=== PATIENT | female | born 1965 | race Caucasian/White ===

== ENCOUNTER 2018-11-15 14:21 | Inpatient (IN) | payer OTHER ==
[~2018-11-15] VITALS: Ht 157.5 cm; Wt 97.5 kg
[2018-11-27] MEDS ORDERED: DEMADEX20 MG PO (13:34)
[2018-11-27] MEDS ORDERED: K-TAB10 MEQ PO (13:34)
[2018-11-27] MEDS ORDERED: METOPROLOL TART25 MG PO (13:35)
[2018-11-27] MEDS ORDERED: OMEPRAZOLE20 M1 PO (13:35)
[2018-11-27] MEDS ORDERED: LEVOXYL100 MCG PO (13:35)
[2018-11-27] MEDS ORDERED: GLUCOPHAGE500 MG PO (13:35)
[2018-11-27] MEDS ORDERED: PROBENECID500 MG PO (13:35)
[2018-11-27] MEDS ORDERED: LISINOPRIL20 MG PO (13:36)
[2018-11-28] VITALS (9 sets, daily range): BP systolic 98–132; BP diastolic 58–72; BMI 40.7; BMI 39.4
[2018-11-28 08:12] LABS: BASOPHILS 0.1 % (0-2); EOSINOPHILS 1.2 % (0-7); HEMATOCRIT 36.9 % (36.0-48.0); HEMOGLOBIN 11.7 g/dL (12-16); IMMATURE GRANULOCYTES 0.1 % (0-5); MCH 27.8 pg (26.0-34.0); MCHC 31.7 g/dL (31.0-37.0); MCV 87.6 fL (80.0-100.0); MEAN PLATELET VOLUME 10.9 fL (7.4-10.4); MONOCYTES 7.9 % (2-11); NEUTROPHILS 76.7 % (40-80); PLATELET COUNT 171 10x3/uL (130-400); RBC 4.21 10x6/uL (4.00-5.40); RDW 14.5 % (11.5-14.5); WBC 6.9 10x3/uL (4.8-10.8)
[2018-11-28 08:23] LABS: CALC OSMOLALITY 280 mosm/kg (275-300); CALCIUM 9.2 mg/dL (8.5-10.1); CARBON DIOXIDE 29.3 mmol/L (21.0-32.0); CHLORIDE - SERUM 104 mmol/L (98-107); CREATININE - SERUM 0.5 mg/dL (0.6-1.3); GLUCOSE 137 mg/dL (74-106); POTASSIUM - SERUM 4.3 mmol/L (3.5-5.1); SODIUM 141 mmol/L (136-145); UREA NITROGEN 8 mg/dL (7-18); eGFR NON AFRICAN AMERICAN > 90 mL/min (90-120)
[2018-11-28 08:52] LABS: APTT 33.7 SECONDS (22.8-39.4); INR 1.09 (0.85-1.17); PROTIME 13.6 SECONDS (11.6-15.0)
--- NOTE | 2018-11-28 17:00 | NUR ---
RECEIVED TO ROOM 2206 VIA BED FROM PACU. ROUSES TO VERBAL STIMULATION. A/O X3. FAMILY AT BEDSIDE. RANDY BANERJEE WTIH CLEAR YELLOW URINE. DRESSING TO ABDOMEN DRY AND INTACT. RAUDEL PATENT WITH SEROUS SANGUINESS DRAINAGE. DENIES NEEDS.
--- NOTE | 2018-11-28 18:10 | NUR ---
FSBS 219. GIVEN 8 UNITS REGUALAR SUBQ FOR SAME PER SS. 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 DENIES NEEDS.
--- NOTE | 2018-11-28 20:00 | NUR ---
PT LYING IN BED RESTING W/ EYES CLOSED. AWAKENS TO VERBAL STIMULI. ALERT AND ORIENTED. NO SIGNS OF DISTRESS. VSS. PT STATES PAIN WHEN MOVING OR COUGHING. PILLOW PROVIDED TO SPLINT ABD WHILE COUGHING. IV LEFT HAND INFUSING NS @ 125 W/ DILAUDID CLERK TO JUSTICE. O2 2L/NC. MIDLINE INCISION, TWO LAP SITES, AND RAUDEL DRAIN SITE DRESSINGS CDI. EMPTIED 70ML FROM DRAIN. PADILLA NOTED DRAINING CLEAR YELLOW URINE. PROVIDED PT W/ ICE CHIPS. NO OTHER NEEDS AT THIS TIME. CL IN REACH, WILL CONTINUE TO MONITOR
[2018-11-29] VITALS: BP 93/51
--- NOTE | 2018-11-29 | NUR ---
BS 176, GAVE 4 UNITS PER SS. DENIES NEEDS. CL IN REACH
[2018-11-29 04:00] VITALS: BP 171/61
[2018-11-29 04:59] LABS: BASOPHILS 0 % (0-2); EOSINOPHILS 0 % (0-7); HEMATOCRIT 33.8 % (36.0-48.0); HEMOGLOBIN 10.4 g/dL (12-16); IMMATURE GRANULOCYTES 0.1 % (0-5); MCH 27.4 pg (26.0-34.0); MCHC 30.8 g/dL (31.0-37.0); MCV 88.9 fL (80.0-100.0); MEAN PLATELET VOLUME 11.3 fL (7.4-10.4); MONOCYTES 11.8 % (2-11); NEUTROPHILS 83.1 % (40-80); PLATELET COUNT 178 10x3/uL (130-400); RDW 14.8 % (11.5-14.5)
[2018-11-29 05:17] LABS: CALC OSMOLALITY 287 mosm/kg (275-300); CALCIUM 8.1 mg/dL (8.5-10.1); CARBON DIOXIDE 26.7 mmol/L (21.0-32.0); CHLORIDE - SERUM 108 mmol/L (98-107); CREATININE - SERUM 0.5 mg/dL (0.6-1.3); GLUCOSE 145 mg/dL (74-106); SODIUM 144 mmol/L (136-145); UREA NITROGEN 8 mg/dL (7-18); eGFR NON AFRICAN AMERICAN > 90 mL/min (90-120)
--- NOTE | 2018-11-29 08:02 | NUR ---
PT RESTING IN BED. NO SIGNS OF DISTRESS. IV TO LEFT HAND PATENT NO REDNESS OR TENDERNESS. ON 2L NC. MIDLINE INCISION CLEAN AND INTACT. HAS RAUDEL DRAIN. HAS PADILLA PATENT NO KINKS. DENIES ANY OTHER NEED AT THIS TIME. CALL LIGHT IN REACH. BED LOW POSITION. NO FAMILY AT BEDSIDE AT THIS TIME.
[2018-11-29 10:12] VITALS: Ht 157.5 cm; Wt 97.5 kg
[2018-11-29 10:25] VITALS: BP 100/59
[2018-11-29 16:40] VITALS: BP 107/65
[2018-11-29 21:07] VITALS: BP 98/47
--- NOTE | 2018-11-29 21:34 | NUR ---
RESTING IN BED NO S/S OF DISTRESS RESP. EVEN AND UNLABORED CALL LIGHT IN REACH.
[2018-11-30 04:51] LABS: BASOPHILS 0.1 % (0-2); EOSINOPHILS 0.4 % (0-7); HEMATOCRIT 30.2 % (36.0-48.0); IMMATURE GRANULOCYTES 0.1 % (0-5); LYMPHOCYTES 13.8 % (15-50); MCH 27.1 pg (26.0-34.0); MCHC 29.8 g/dL (31.0-37.0); MEAN PLATELET VOLUME 11.2 fL (7.4-10.4); MONOCYTES 9.5 % (2-11); NEUTROPHILS 76.1 % (40-80); RBC 3.32 10x6/uL (4.00-5.40); RDW 15.1 % (11.5-14.5)
[2018-11-30 04:56] LABS: CALC OSMOLALITY 290 mosm/kg (275-300); CALCIUM 8.1 mg/dL (8.5-10.1); CARBON DIOXIDE 26.7 mmol/L (21.0-32.0); CHLORIDE - SERUM 112 mmol/L (98-107); CREATININE - SERUM 0.5 mg/dL (0.6-1.3); GLUCOSE 119 mg/dL (74-106); POTASSIUM - SERUM 3.8 mmol/L (3.5-5.1); SODIUM 146 mmol/L (136-145); UREA NITROGEN 9 mg/dL (7-18); eGFR NON AFRICAN AMERICAN > 90 mL/min (90-120)
[2018-11-30 05:01] LABS: PLATELET COUNT 139 10x3/uL (130-400)
--- NOTE | 2018-11-30 08:16 | NUR ---
PT RESTING IN BED. NO SIGNS OF DISTRESS. IV TO LEFT HAND PATENT NO REDNESS OR TENDERNESS. ON 2L NC. HAS MIDLINE INCISION. DRESSING CLEAN AND INTACT. RAUDEL TO RIGHT SIDE PATENT. DENIES ANY FUTHER NEED AT THIS TIME. CALL LIGHT IN REACH. BED LOW POSITION. NO FAMILY AT BEDSIDE AT THIS TIME.
--- NOTE | 2018-11-30 15:20 | MORECARE ---
CASE MANAGEMENT DISCHARGE SUMMARY PATIENT: NETO ESPINOSA UNIT: [id number] ADM DATE: 11/28/18 AGE: 53 : 61 SEX: F ROOM/BED: D.2206 AUTHOR: BERNARDADOC PHYSICIAN: REFERRING PHYSICIAN: FATOU HOBSON MD DATE OF SERVICE: 11/30/18 Discharge Plan Patient Name: NETO ESPINOSA Facility: [facility]:[place] : 1965 Planned Disposition: Home or Self Care Anticipated Discharge Date: Discharge Date: Expected LOS: Initial Reviewer: [email or web address] Initial Review Date: 11/28/2018 Generated: 11/30/18 4:20 pm Comments DCP- Discharge Planning Updated by [email or web address]: Maile Martinez on 11/30/18 2:[address] Patient Name: NETO ESPINOSA Admission Status: Elective Accout number: [id number] Admission Date: 11-28-2018 : 1965 Admission Diagnosis:INCISIONAL HERNIA WITHOUT OBSTRUCTION OR GANGRENE Attending: FATOU HOBSON Current LOS: 2 Anticipated DC Date: Planned Disposition: Home or Self Care Primary Insurance: [employer] INS EXCHANGE Discharge Planning Comments: CM met with patient to assess discharge planning needs. Patient stated that she lives in [facility] [place] She stated that her sister will be the one to drive her home at discharge. She will stay with her sister for about a week to recover then go home. She lives with her adult son, daughter in law, and 3 kids. She does not use any DME or Community resources and did not think she will need anything when she goes home. CM will continue to follow and assist with DC planning as needed Automotive Lot Attendant: Maile Martinez DCPIA - Discharge Planning Initial Assessment Updated by [email or web address]: Maile Martinez on 11/30/18 3:15 pm * Is the patient Alert and Oriented? Yes * How many steps to enter\exit or inside your home? * PCP Dr Duncan ([place]) * [facility] in [place] * Preadmission Environment Home with Family * ADLs Independent * Equipment None * List name and contact numbers for known caregivers / representatives who currently or will assist patient after discharge: jose espinosa (sister) [phone] * Verbal permission to speak to the caregivers and representatives has been obtained from the patient. N/A * Community resources currently utilized None * Additional services required to return to the preadmission environment? No * Can the patient safely return to the preadmission environment? Yes * Has this patient been hospitalized within the prior 30 days at any hospital? No Patient Name: NETO ESPINOSA Page [id number] at 1520 All edits/amendments must be made on the electronic document DICTATION DATE: 11/30/18 1520 ASPHALT WORKER: BIJU 11/30/18 1520 RPT#: [id number] DC DATE: STATUS: ADM IN [facility] [address] [place] [address] END OF REPORT
--- NOTE | 2018-11-30 18:55 | NUR ---
ALERT AND ORIENTED. MIDLIN INCSION CLEAN DRY AND INTACT DRESSING. RAUDEL TO THE RIGHT IV TO THE LEFT HAND INFUSING. BED IN LOW POSITION AND CALLLIGHT IS IN REACH
[2018-11-30 20:00] VITALS: BP 109/55
[2018-12-01 00:01] VITALS: BP 95/46
[2018-12-01 04:00] VITALS: BP 94/47
[2018-12-01 06:10] LABS: BASOPHILS 0 % (0-2); EOSINOPHILS 2.8 % (0-7); HEMATOCRIT 25.7 % (36.0-48.0); HEMOGLOBIN 7.8 g/dL (12-16); LYMPHOCYTES 23.9 % (15-50); MCH 27.5 pg (26.0-34.0); MCHC 30.4 g/dL (31.0-37.0); MCV 90.5 fL (80.0-100.0); MEAN PLATELET VOLUME 10.8 fL (7.4-10.4); MONOCYTES 7.4 % (2-11); NEUTROPHILS 65.9 % (40-80); PLATELET COUNT 132 10x3/uL (130-400); RBC 2.84 10x6/uL (4.00-5.40); RDW 14.9 % (11.5-14.5); WBC 5.3 10x3/uL (4.8-10.8)
[2018-12-01 06:31] LABS: CALC OSMOLALITY 288 mosm/kg (275-300); CALCIUM 8.1 mg/dL (8.5-10.1); CARBON DIOXIDE 25.2 mmol/L (21.0-32.0); CHLORIDE - SERUM 111 mmol/L (98-107); CREATININE - SERUM 0.5 mg/dL (0.6-1.3); GLUCOSE 108 mg/dL (74-106); POTASSIUM - SERUM 3.4 mmol/L (3.5-5.1); SODIUM 145 mmol/L (136-145); UREA NITROGEN 11 mg/dL (7-18); eGFR NON AFRICAN AMERICAN > 90 mL/min (90-120)
--- NOTE | 2018-12-01 07:44 | NUR ---
PT LYING IN BED, EVEN RISE AND FALL OF CHEST, NO SIGNS OF DISTRESS, CONTINUE WITH PLAN OF CARE, CL IN REACH
[2018-12-01 09:02] VITALS: BP 117/72
--- NOTE | 2018-12-01 09:29 | NUR ---
[facility] SECURITY NOTE-SITTING UP IN CHAIR AT BEDSIDE. WANTS TO GO HOME THIS AM. STATES PAIN IS CONTROLLED AND SLEPT WELL LAST PM. REQUESTED ICE TEA-MADE AND GIVEN TO PATIENT. CALL LIGHT IN REACH
[2018-12-01] MEDS ORDERED: DILAUDID2 MG PO (09:54)
--- NOTE | 2018-12-01 10:35 | MORECARE ---
CASE MANAGEMENT DISCHARGE SUMMARY PATIENT: NETO ESPINOSA UNIT: [id number] ADM DATE: 11/28/18 AGE: 53 : 61 SEX: F ROOM/BED: D.2206 AUTHOR: SRUTHI MENCHACA PHYSICIAN: REFERRING PHYSICIAN: FATOU HOBSON MD DATE OF SERVICE: 12/01/18 Discharge Plan Patient Name: NETO ESPINOSA Facility: [facility]:[place] : 1965 Planned Disposition: Home or Self Care Anticipated Discharge Date: Discharge Date: Expected LOS: Initial Reviewer: [email or web address] Initial Review Date: 11/28/2018 Generated: 12/01/18 11:35 am Comments DCP- Discharge Planning Updated by [email or web address]: Maile Martinez on 12/01/18 9:[address] Patient Name: NETO ESPINOSA Encounter No: [id number] : 1965 Primary Insurance: [employer] INS EXCHANGE Anticipated DC Date: Planned Disposition: Home or Self Care External Planned Provider: : DCP follow-up note: Patient and family in agreement with discharge plan. No changes to plan. Case management will follow and assist as needed. Maile Martinez DCP- Discharge Planning Updated by [email or web address]: Maile Martinez on 11/30/18 2:[address] Patient Name: NETO ESPINOSA Admission Status: Elective Accout number: [id number] Admission Date: 11-28-2018 : 1965 Admission Diagnosis:INCISIONAL HERNIA WITHOUT OBSTRUCTION OR GANGRENE Attending: FATOU HOBSON Current LOS: 2 Anticipated DC Date: Planned Disposition: Home or Self Care Primary Insurance: [employer] INS EXCHANGE Discharge Planning Comments: CM met with patient to assess discharge planning needs. Patient stated that she lives in [facility] [place] She stated that her sister will be the one to drive her home at discharge. She will stay with her sister for about a week to recover then go home. She lives with her adult son, daughter in law, and 3 kids. She does not use any DME or Community resources and did not think she will need anything when she goes home. CM will continue to follow and assist with DC planning as needed Salon Leader: Maile Martinez DCPIA - Discharge Planning Initial Assessment Updated by [email or web address]: Maile Martinez on 11/30/18 3:15 pm * Is the patient Alert and Oriented? Yes * How many steps to enter\exit or inside your home? * PCP Dr Duncan ([place]) * [facility] in [place] * Preadmission Environment Home with Family * ADLs Independent * Equipment None * List name and contact numbers for known caregivers / representatives who currently or will assist patient after discharge: jose espinosa (sister) [phone] * Verbal permission to speak to the caregivers and representatives has been obtained from the patient. N/A * Community resources currently utilized None * Additional services required to return to the preadmission environment? No * Can the patient safely return to the preadmission environment? Yes * Has this patient been hospitalized within the prior 30 days at any hospital? No Last DP export: 11/30/18 2:20 p Patient Name: NETO ESPINOSA Page [id number] at 1035 All edits/amendments must be made on the electronic document DICTATION DATE: 12/01/18 1034 EXPERT MEDICAL WRITER: BIJU 12/01/18 1034 RPT#: [id number] DC DATE: STATUS: ADM IN [facility] [address] [place] [address] END OF REPORT
--- NOTE | 2018-12-01 12:04 | NUR ---
WENT OVER DC INSTRUCTIONS WITH PT ALL QUESTONS ANSWERED. PT TAKEN DOWN BY WC WITH FAMILY
--- NOTE | 2018-12-01 14:36 | MORECARE ---
CASE MANAGEMENT DISCHARGE SUMMARY PATIENT: NETO ESPINOSA UNIT: [id number] ADM DATE: 11/28/18 AGE: 53 : 61 SEX: F ROOM/BED: D.2206 AUTHOR: BERNARDADOC PHYSICIAN: REFERRING PHYSICIAN: FATOU HOBSON MD DATE OF SERVICE: 12/01/18 Discharge Plan Patient Name: NETO ESPINOSA Facility: [facility]:[place] : 1965 Planned Disposition: Home or Self Care Anticipated Discharge Date: Discharge Date: 12/01/2018 Expected LOS: 0 Initial Reviewer: [email or web address] Initial Review Date: 11/28/2018 Generated: 12/01/18 3:36 pm Comments DCP- Discharge Planning Updated by [email or web address]: Maile Martinez on 12/01/18 9:[address] Patient Name: NETO ESPINOSA Encounter No: [id number] : 1965 Primary Insurance: [employer] INS EXCHANGE Anticipated DC Date: Planned Disposition: Home or Self Care External Planned Provider: : DCP follow-up note: Patient and family in agreement with discharge plan. No changes to plan. Case management will follow and assist as needed. Maile Martinez DCP- Discharge Planning Updated by [id number]: Maile Martinez on 11/30/18 2:[address] Patient Name: NETO ESPINOSA Admission Status: Elective Accout number: [id number] Admission Date: 11-28-2018 : 1965 Admission Diagnosis:INCISIONAL HERNIA WITHOUT OBSTRUCTION OR GANGRENE Attending: FATOU HOBSON Current LOS: 2 Anticipated DC Date: Planned Disposition: Home or Self Care Primary Insurance: [employer] INS EXCHANGE Discharge Planning Comments: CM met with patient to assess discharge planning needs. Patient stated that she lives in [facility] [place] She stated that her sister will be the one to drive her home at discharge. She will stay with her sister for about a week to recover then go home. She lives with her adult son, daughter in law, and 3 kids. She does not use any DME or Community resources and did not think she will need anything when she goes home. CM will continue to follow and assist with DC planning as needed School Psychology Professor: Maile Martinez DCPIA - Discharge Planning Initial Assessment Updated by [email or web address]: Maile Martinez on 11/30/18 3:15 pm * Is the patient Alert and Oriented? Yes * How many steps to enter\exit or inside your home? * PCP Dr Duncan ([place]) * Pharmacy [facility] in [place] * Preadmission Environment Home with Family * ADLs Independent * Equipment None * List name and contact numbers for known caregivers / representatives who currently or will assist patient after discharge: jose espinosa (sister) [phone] * Verbal permission to speak to the caregivers and representatives has been obtained from the patient. N/A * Community resources currently utilized None * Additional services required to return to the preadmission environment? No * Can the patient safely return to the preadmission environment? Yes * Has this patient been hospitalized within the prior 30 days at any hospital? No Last DP export: 12/01/18 9:35 a Patient Name: NETO ESPINOSA Page [phone] at 1436 All edits/amendments must be made on the electronic document DICTATION DATE: 12/01/18 1435 HEAVY DUTY MECHANIC: BIJU 12/01/18 1435 RPT#: [id number] DC DATE:12/01/18 STATUS: DIS IN [facility] [address] [place] [address] END OF REPORT
--- NOTE | 2018-12-14 09:41 | OP ---
PATIENT NAME: NETO ESPINOSA MEDICAL RECORD: [id number] :[birth year] LOCATION:D.MS [place]6 ADMISSION DATE:11/28/18 SURGEON: ANTONIO HOBSON MD DATE OF OPERATION: 11/28/2018 PREOPERATIVE DIAGNOSES: 1. Recurrent ventral incisional hernia. 2. Diverticulitis of the sigmoid colon. 3. Diabetes mellitus. 4. Gout. 5. Arthritis. 6. Morbid obesity with a BMI of 40. POSTOPERATIVE DIAGNOSES: 1. Recurrent ventral incisional hernia. 2. Diverticulitis of the sigmoid colon. 3. Diabetes mellitus. 4. Gout. 5. Arthritis. 6. Morbid obesity with a BMI of 40. PROCEDURE: 1. Recurrent incarcerated ventral incisional hernia repair with Vicryl mesh. 2. Hand-assisted laparoscopic sigmoid colectomy. SURGEON: Antonio Hobson MD LOCKSMITH HELPER: Fernanda Hart APRN REPORT OF PROCEDURE: The patient's abdomen was prepped and draped in sterile fashion. A skin incision was made in the midline just below and around the patient's umbilicus. Electrocautery was used to dissect through the subcutaneous tissue. As we dissected down, we encountered a hernia defect. There was a large degree of incarcerated fatty tissue present within the hernia defects. I could feel down and push my finger into the initial hernia defect, but I never could reduce the hernia contents. This fatty tissue eventually had to be transected and this remaining portion was thrown away. At this point, we could enter the abdominal cavity, and with probing I could feel that there were 4 other hernia defects present in this general area. The hernia defects, basically all scattered around the patient's umbilicus. The largest of these was approximately 2 cm in greatest diameter. The most inferior hernia defect was in the midline and it was the largest of all of them. I opened up the fascial bridge between this and the next one in the midline. This next one in the midline was approximately 1.5 to 2 cm in size. Once this was opened up, we could clearly take down any adhesions that were present to the anterior abdominal wall. There was still some hernia defect present with incarcerated fatty tissue. Any of these we encountered, we opened up the hernia sac, we just have to transect through the fatty contents in order to reduce it. There was another small hernia defect at the base of the umbilicus. The umbilicus had to be elevated off of the fascial tissue and the hernia sac penetrated. Just to the right of midline, there were 2 other small hernia defects with a large of these being 1-1/2 cm. These 2 were right next to each other and by only a small fascial bridge. I went ahead and just closed these defects using a running #1 Prolene. This reapproximated the tissue easily as her abdominal wall was not very tight. At this point, we cleared off the edges of the fascial OPERATIVE REPORT [id number] NETO ESPINOSA defects and had a nice large opening present. This incorporated all the fascial defects at this point. We then inserted a Gelport with a 5-mm trocar within it. With this, we were able to insufflate the abdomen and place another 5-mm trocar in the right lateral abdomen and a 12-mm trocar in the right lower quadrant. We were able to pull up the patient's sigmoid colon and rectum. There were noted to be diverticula present, but no evidence of acute diverticulitis. We had some adhesions to the inferior aspect of the abdomen and one long fatty adhesion present down into the pelvis. These were all transected using electrocautery. We eventually had to mobilize the patient's left colon medially by taking down the white line of Toldt. With doing this, we had good mobilization of the colon. A window was made at the base of the distal sigmoid colon at the rectosigmoid junction and using a 70 blue load ASHANTI stapler, we transected the bowel. The mesentery was then taken down with multiple fires of a white load of the Endo-ASHANTI stapler. We then eviscerated this sigmoid colon through the wound protector. The remaining aspects of the mesentery were taken down with sequential clamp and tie technique and the colon was transected at the distal descending region using electrocautery. A 2-0 Prolene was used to make a pursestring out of this distal end of the colon. A 29 EEA anvil was then inserted and the pursestring was tied down tightly. We performed an end-to-end anastomosis through the rectum using the 29 EEA stapler. This was done under direct visualization. At conclusion of this, we had 2 distinct rings of tissue present and there was no sign of any leaks from the anastomotic site when we instilled air through the rectum while it was under water. The anastomosis was difficult to see just because of a large amount of fatty tissue and bowel present in the patient's pelvis. For this reason, I was not able to place any sutures in the Lemberted fashion over the staple line, which is my normal. The bowel that I could see did not appear to be under any sort of tension, so I felt comfortable leaving it at this point. The patient's omentum was then rested back down into the pelvis. We irrigated out the abdomen thoroughly with normal saline and assured there was no sign of any active bleeding, which we saw none. The 12-mm trocar site fascia was then closed with 0 Vicryl using a Derek-Yumiko suture passer device. The midline fascia was then closed with a #1 Prolene in a running fashion. We then performed an overlay of Vicryl mesh over the midline fascial defect. This covered up all of the hernia sites that were present. We sutured down this mesh, which was cutdown to the appropriate size using multiple interrupted #1 PDS. The mesh appeared to rest comfortably over the midline fascial repair. We then irrigated out the wound with normal saline and again assured there was no sign of any bleeding. A 15 fully-fluted Julian drain was then inserted into the subcutaneous opening and sutured into place with a 3-0 silk. The midline fatty tissue and the umbilicus were all tacked down and reapproximated using multiple interrupted 3-0 Vicryls. The skin was then closed with seferino. COMPLICATIONS: None. CONDITION: Stable. ANESTHESIA: General endotracheal. BLOOD LOSS: 100 mL. TRANSINT:[id number] Voice Confirmation ID: [id number] DOCUMENT ID: [id number] cc: Dr. Mercado and Riya De La Paz, not found. OPERATIVE REPORT [id number] NETO ESPINOSA CHRISTIAN MD at 0941 CC: [id number] DICTATION DATE: 11/28/18 1443 ED SPECIAL EDUCATION TEACHER: 11/28/18 1540 DIS IN 12/01/18 [id number] [place] [address]
== END 2018-12-01 12:05 | disposition home or self-care (01) | DRG 330 ==
LOC: D.SDCHOLD 11-28 07:50 → D.MS 11-28 07:50 → D.SDCHOLD 11-28 10:00 → D.MS 11-28 14:52
PROVIDERS: Anesthesiology; ADMIT Surgery
PROC: 0WUF0JZ Supplement Abdominal Wall with Synthetic Substitute, Open Approach (ICD-10-PCS; principal; 2018-11-28 11:00)
PROC: 0DBN0ZZ Excision of Sigmoid Colon, Open Approach (ICD-10-PCS; 2018-11-28 11:00)
DX: K43.2 Incisional hernia without obstruction or gangrene (principal); K57.32 Diverticulitis of large intestine without perforation or abscess without bleeding; Z68.41 Body mass index [BMI] 40.0-44.9, adult; E11.9 Type 2 diabetes mellitus without complications; E66.01 Morbid (severe) obesity due to excess calories

== ENCOUNTER → 2019-01-03 23:02 | Outpatient (CLI) | payer OTHER ==
[2018-11-29 10:12] VITALS: BMI 39.3
[~2019-01-03 23:02] MED LIST: DEMADEX20 MG PO; DILAUDID2 MG PO; GLUCOPHAGE500 MG PO; K-TAB10 MEQ PO; LEVOXYL100 MCG PO; LISINOPRIL20 MG PO; METOPROLOL TART25 MG PO; OMEPRAZOLE20 M1 PO; PROBENECID500 MG PO
== END | disposition home or self-care (01) ==
LOC: D.LABREF 23:02
PROVIDERS: ATTEND Surgery
DX: L02.211 Cutaneous abscess of abdominal wall (principal)